=== PATIENT | male | born 1990 | race American Indian/Alaskan Native ===

== ENCOUNTER 2021-10-22 07:03 | Emergency (ER) | payer SELFPAY ==
[2021-10-22] MEDS ORDERED: KETOROLAC 30 MG/1 ML INJ IM ONE (10:00)
--- NOTE | 2021-10-22 10:04 | Emergency Department Report ---
ED Back Pain/Injury HPI - General Chief Complaint: Back Pain/Injury Stated Complaint: LOWER BACK PAIN Time Seen by Provider: 10/22/21 09:37 Source: patient Limitations: No Limitations - History of Present Illness Initial Comments: This is a 31-year-old male with no past medical history presents the ED complaining of right-sided mid to lower back pain times 2 days patient states pain is throbbing aching and sharp in nature that comes and goes throughout the day. 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 Patient denies any injury, trauma or falls. Patient denies any urinary symptoms or bowel symptoms. MD Complaint: back pain Place: work Radiation: buttocks Severity: mild Severity scale (0 -10): 5 Consistency: intermittent - Related Data Previous Rx's Medication Instructions Recorded Last Taken Type Cyclobenzaprine [Flexeril 10 MG 10 mg PO QHS PRN #15 tablet 10/22/21 Unknown Rx TAB] Ibuprofen [Motrin 800 MG tab] 800 mg PO Q8HR PRN #15 tablet 10/22/21 Unknown Rx Allergies Allergy/AdvReac Type Severity Reaction Status Date / Time No Known Allergies Allergy Verified 10/22/21 07:31 ED Review of Systems ROS: Stated complaint: LOWER BACK PAIN Other details as noted in HPI Comment: All other systems reviewed and negative Gastrointestinal: denies: abdominal pain Neurological: denies: headache, numbness ED Back Pain Physical Exam - Exam General: Vital signs noted. No distress. Alert and acting appropriately. Back/Abdomen: Yes Straight Leg Raise Pain, No Abdominal Tenderness, No Perithoracic Tenderness, No Perilumbar Tenderness, No Sacroiliac Tenderness, No Flank Tenderness Neuro: Yes Normal Sensation, Yes Normal DTR's, Yes Normal Gait, No Motor Weakness ED Course Vital Signs 10/22/21 07:27 Temperature 98.1 F Pulse Rate 96 H Blood Pressure 121/68 [Right] O2 Sat by Pulse 97 Oximetry ED Medical Decision Making - Medical Decision Making 31-year-old male presents with lower back pain most likely secondary to muscle strain. ED course: Patient received Toradol in ED. Vital signs are normal patient is in no acute distress Discussed with patient follow-up with primary care physician. Discussed the patient and take medications as prescribed. Patient has no neurological deficit. Patient is alert and oriented 3 and understands all instructions given. Discussed ice compression 3 times a day. Discussed follow-up with orthopedic if symptoms persist. Critical care attestation.: If time is entered above; I have spent that time in minutes in the direct care of this critically ill patient, excluding procedure time. ED Disposition Clinical Impression: Strain of muscle, fascia and tendon of lower back, initial encounter Disposition: HOME / SELF CARE / HOMELESS Is pt being admited?: No Does the pt Need Aspirin: No Condition: Stable Instructions: Muscle Strain, [id number] Additional Instructions: Make sure to follow up with the primary care physician as discussed. Take all your medications as you've been prescribed. If you have any worsening symptoms or develop new symptoms please return to ED immediately. Prescriptions: Cyclobenzaprine [Flexeril 10 MG TAB] 10 mg PO QHS PRN #15 tablet PRN Reason: Muscle Spasm Ibuprofen [Motrin 800 MG tab] 800 mg PO Q8HR PRN #15 tablet PRN Reason: Pain Referrals: PRIMARY CARE, [Primary Care Provider] - 3-5 Days [facility] [Provider Group] - 3-5 Days Time of Disposition: 10:12
[2021-10-22 12:52] VITALS: BP 133/89
== END 2021-10-22 12:52 | disposition home or self-care (01) ==
LOC: ED 07:03
DX: S39.012A Strain of muscle, fascia and tendon of lower back, initial encounter (principal); Z79.899 Other long term (current) drug therapy; X58.XXXA Exposure to other specified factors, initial encounter; Y93.89 Activity, other specified; Y92.89 Other specified places as the place of occurrence of the external cause; Y99.8 Other external cause status
CPT/HCPCS: 96372; 99282; J1885